=== PATIENT | male | born 1970 | race Caucasian/White ===

== ENCOUNTER 2017-01-22 04:21 | Emergency (ER) | payer OTHER ==
[~2017-01-22] VITALS: Ht 175.3 cm; Wt 92.0 kg
[~2017-01-22 04:21] MED LIST: HYDR-3498 PO; ONDA4TAB8 PO; TAMS-14 PO
[2017-01-22 04:29] VITALS: Ht 175.3 cm; Wt 92.0 kg
[2017-01-22] MEDS ORDERED: ONDANSETRON 4 MG INJ IV STA (04:49)
[2017-01-22] MEDS ORDERED: morphine 4 MG/ML VIAL IV STA (04:49)
[2017-01-22 05:20] LABS: ADD SCAN DIFF NO
[2017-01-22 05:27] LABS: BASOPHIL # 0.1 10^3/ul (0.0-0.1); BASOPHILS % 1.3 % (0.0-2.0); EOSINOPHILS # 0.3 10^3/ul (0.0-0.5); EOSINOPHILS % 3.8 % (0.0-7.0); HEMATOCRIT 49.8 % (42.0-52.0); HEMOGLOBIN 17.5 g/dl (14.0-18.0); LYMPHOCYTES # 2.8 10^3/ul (0.8-2.9); LYMPHOCYTES % 35.7 % (15.0-51.0); MEAN CORPUSCULAR HGB CONC 35.1 g/dl (32.0-37.0); MEAN PLATELET VOLUME 11.6 fl (7.4-10.4); MONOCYTE # 0.6 10^3/ul (0.3-0.9); MONOCYTES % 8.3 % (0.0-11.0); NEUTROPHIL # 3.9 10^3/ul (1.6-7.5); NEUTROPHILS % 50.6 % (39.0-77.0); PLATELET COUNT 244 10^3/UL (140-415); RED BLOOD COUNT 5.47 10^6/ul (4.70-6.10); RED CELL DISTRIBUTION WIDTH 11.6 % (11.5-14.5); WHITE BLOOD COUNT 7.7 10^3/ul (4.8-10.8)
[2017-01-22 05:33] LABS: CHLORIDE 106 mmol/L (97-110)
[2017-01-22 05:34] LABS: ALBUMIN 4.1 g/dl (3.3-4.9); INR 1.05; POTASSIUM 3.7 mmol/L (3.5-5.1); PROTIME 13.7 Sec (12.2-14.2); PT RATIO 1.1; SODIUM 142 mmol/L (135-144)
[2017-01-22 05:35] LABS: PARTIAL THROMBOPLASTIN TIME 29.2 Sec (25.0-35.0)
[2017-01-22 05:37] LABS: ALANINE AMINOTRANSFERASE 69 IU/L (13-69); ALBUMIN/GLOBULIN RATIO 1.28; ALKALINE PHOSPHATASE 86 IU/L (42-121); ANION GAP 14 (8-16); ASPARTATE AMINO TRANSFERASE 38 IU/L (15-46); BILIRUBIN,INDIRECT 0.5 mg/dl (0-1.1); BILIRUBIN,TOTAL 0.5 mg/dl (0.2-1.3); BLOOD UREA NITROGEN 15 mg/dl (7-20); CARBON DIOXIDE 26 mmol/L (21-31); GLUCOSE 110 mg/dl (70-220); TOTAL PROTEIN 7.3 g/dl (6.1-8.1)
--- NOTE | 2017-01-22 05:40 | ERD ---
ER Documentation Chief Complaint Date/Time DATE: 01/22/17 TIME: 05:39 Chief Complaint c/o L arm pain, back pain, L shoulder pain and ble pain since 0200 and SOB HPI This is a 45 mL, soft arm pain back and left shoulder pain and bilateral extremity pain since 2 AM.. This is a chronic into the patient's electronic medical care for. He says he gets so much pain that he becomes short of breath. He denies any fevers or chills. He denies any silvia chest pain. He denies any nausea vomiting fevers or chills. Denies any other current complaints. Pain is mild to moderate intensity and tends to come in waves and is exacerbated by motion. ROS All systems reviewed and are negative except as per history of present illness. Medications Home Meds Active Scripts Tamsulosin Hcl* (Flomax*) 0.4 Mg Cap.er.24h, 0.4 MG PO QPM, #30 CAP Prov:EVERTON SCHWAB PA-C 06/10/16 Ondansetron Hcl* (Zofran*) 4 Mg Tablet, 4 MG PO Q6H for NAUSEA AND/OR VOMITING, #30 TAB Prov:EVERTON SCHWAB PA-C 06/10/16 Hydrocodone Bit-Acetaminophen* ([place]*) 5-325 Mg Tab, 1 TAB PO Q6 Y for PAIN, # 15 TAB Prov:EVERTON SCHWAB PA-C 06/10/16 Reported Medications [None] No Conflict Check 06/12/11 Allergies Allergies: Coded Allergies: No Known Allergy (Unverified , 11/02/13) PMhx/Soc History of Surgery: No Anesthesia Reaction: No Hx Neurological Disorder: No Hx Respiratory Disorders: No Hx Cardiac Disorders: No Hx Psychiatric Problems: No Hx Miscellaneous Medical Probl: Yes (KIDNEY STONE, CHRONIC BACK PAIN.) Hx Alcohol Use: No Hx Substance Use: No Hx Tobacco Use: No Smoking Status: Never smoker Physical Exam Vitals Vital Signs Date Time Temp Pulse Resp B/P Pulse Ox O2 Delivery O2 Flow Rate FiO2 01/22/17 05:00 75 17 142/86 95 Room Air 01/22/17 04:29 98.7 88 18 158/97 98 Physical Exam Const: [] Head: Atraumatic Eyes: Normal Conjunctiva ENT: Normal External Ears, Nose and Mouth. Neck: Full range of motion..~ No meningismus. Resp: Clear to auscultation bilaterally Cardio: Regular rate and rhythm, no murmurs Abd: Soft, non tender, non distended. Normal bowel sounds Skin: No petechiae or rashes Back: No midline or flank tenderness Ext: No cyanosis, or edema Neur: Awake and alert Psych: Normal Mood and Affect Results 24 hrs Laboratory Tests Test 01/22/17 04:47 Prothrombin Time 13.7Sec Prothrombin Time Ratio 1.1 INR International Normalized Ratio 1.05 Activated Partial Thromboplast Time 29.2Sec Current Medications Medications (Trade) Dose Ordered Sig/Iban Route PRN Reason Start Time Stop Time Status Last Admin Dose Admin Morphine Sulfate (morphine) 4 mg ONCE STAT IV 01/22/17 04:49 01/22/17 04:50 DC 01/22/17 05:00 Ondansetron HCl (Zofran Inj) 4 mg ONCE STAT IV 01/22/17 04:49 01/22/17 04:50 DC 01/22/17 05:00 Procedures/MDM EKG: Rate/Rhythm: [Normal Sinus Rhythm] QRS, ST, T-waves: [No changes consistent w/ acute ischemia] Impression: [No evidence of ischemia or arrhythmia] Chest X-ray 1V Interpreted by me: Soft Tissue: No acute abnormalities Bones: No acute abnormalities Mediastinum/Cardiac Silhouette/Lungs: [No acute abnormalities] Medical decision-making: Patient comes in essentially for acute exacerbation of chronic pain syndrome. Patient feels better. Patient be discharged home and tramadol. Departure Diagnosis: Primary Impression: Myalgia Condition: Stable PER HERNÁNDEZ Jan 22, 2017 05:40
[2017-01-22] MEDS ORDERED: TRAM50TA2 PO (05:41)
[2017-01-22 05:46] LABS: B-TYPE NATRIURETIC PEPTIDE 22 PG/ML (0-125)
[2017-01-22 05:59] LABS: TROPONIN-I < 0.012 ng/ml (0.00-0.12)
--- NOTE | 2017-01-22 05:59 | RADRPT ---
PROCEDURE: Chest. CLINICAL INDICATION: Chest pain. TECHNIQUE: Single frontal view of the chest was obtained. COMPARISON: None. FINDINGS: The cardiac silhouette is within normal limits. The aortic arch is unremarkable. There is no focal consolidation, vascular congestion or pleural effusion. There is no pneumothorax. IMPRESSION: No evidence for active cardiopulmonary disease. .Heri Mehta MD, MD Date Time Electronically viewed and signed by .Heri Mehta MD, on 01/22/2017 05:59 .T/
[2017-01-22 06:08] VITALS: BP 135/88; PULSE 76; RESP 17; TEMP 98.6
== END 2017-01-22 06:18 | disposition home or self-care (01) ==
LOC: E/R 04:21
DX: M79.1 Myalgia (principal); R07.9 Chest pain, unspecified
CPT/HCPCS: 36415; 71010; 80053; 83880; 84484; 85025; 85610; 85730; 93005; 96374; 96375; J2270; J2405; Z7502; Z7610

== ENCOUNTER 2019-02-20 16:04 | Emergency (ER) | payer OTHER ==
[~2019-02-20] VITALS: Ht 175.3 cm; Wt 97.3 kg
[~2019-02-20 16:04] MED LIST changes: +TRAM50TA2 PO
[2019-02-20 16:19] VITALS: Ht 175.3 cm; Wt 97.3 kg
[2019-02-20] MEDS ORDERED: KETOROLAC 60 MG INJ IM STA (18:08)
[2019-02-20] MEDS ORDERED: HYDROCODONE/APAP (10/325) TAB PO ONE (18:30)
[2019-02-20] MEDS ORDERED: morphine 10 MG INJ IM ONE (20:00)
[2019-02-20] MEDS ORDERED: OXYC-282 PO (20:18)
[2019-02-20 20:35] VITALS: BP 127/78; PULSE 68; RESP 18
--- NOTE | 2019-02-20 20:38 | ERD ---
ER Documentation Chief Complaint Chief Complaint Chronic back pain after injury 6 months ago, worse today HPI 48-year-old male patient with a past medical history of chronic back pain prese nts to ED complaining of lower back pain that started 3 years ago after a work injury. Patient reports that it was due to lifting a 300 pound object. Reports that he has an orthopedic physician, Dr. Minor who has been following up with him, last imaging was July with an MRI however states that now he feels some numbness and tingling on his legs. States that he still needs a prior authorization for surgery for his back. Describes his pain is achy and rates it a 10 out of 10. Patient denies any chest pain, shortness of breath, nausea, vomiting, diarrhea, neck stiffness. Denies any saddle anesthesia, urine or bowel incontinence, fever, chills. ROS All systems reviewed and are negative except as per history of present illness. Medications Home Meds Active Scripts Oxycodone HCl/Acetaminophen (Percocet 2.5-325 mg Tablet) 1 Each Tablet, 1 EACH PO Q6H, #7 TAB Prov:SANTIAGO LEWIS PA-C 02/20/19 Tramadol HCl (Tramadol HCl) 50 Mg Tablet, 50 MG PO Q4 PRN for PAIN, #20 TAB Prov:PER HERNÁNDEZ 01/22/17 Tamsulosin Hcl* (Flomax*) 0.4 Mg Cap.er.24h, 0.4 MG PO QPM, #30 CAP Prov:EVERTON SCHWAB PA-C 06/10/16 Ondansetron Hcl* (Zofran*) 4 Mg Tablet, 4 MG PO Q6H for NAUSEA AND/OR VOMITING, #30 TAB Prov:EVERTON SCHWAB PA-C 06/10/16 Hydrocodone Bit-Acetaminophen* ([place]*) 5-325 Mg Tab, 1 TAB PO Q6 PRN for PAIN, #15 TAB Prov:EVERTON SCHWAB PA-C 06/10/16 Reported Medications [None] No Conflict Check 06/12/11 Allergies Allergies: Coded Allergies: No Known Allergy (Unverified , 11/02/13) PMhx/Soc History of Surgery: No Anesthesia Reaction: No Hx Neurological Disorder: No Hx Respiratory Disorders: No Hx Cardiac Disorders: No Hx Psychiatric Problems: No Hx Miscellaneous Medical Probl: Yes (KIDNEY STONE, CHRONIC BACK PAIN.) Hx Alcohol Use: No Hx Substance Use: No Hx Tobacco Use: No Smoking Status: Never smoker FmHx Family History: No diabetes, No coronary disease Physical Exam Vitals Vital Signs Date Temp Pulse Resp B/P (MAP) Pulse Ox O2 O2 Flow FiO2 Time Delivery Rate 02/20/19 98.8 68 18 127/78 97 Room Air 20:35 (94) 02/20/19 99.0 97 18 178/94 96 16:19 (122) Physical Exam Const: [id number], well-nourished. In no acute distress. Head: Atraumatic, normocephalic Eyes: Normal Conjunctiva without injection. No purulent discharge. ENT: Normal external ear, nose. Moist oropharynx without tonsillar exudates. Non-erythematous pharynx. Uvula midline. No drooling. No trismus. Neck: No cervical midline tenderness. Full range of motion. No meningismus. No cervical lymphadenopathy. No JVD. Resp: Clear to auscultation bilaterally. No wheezing, rhonchi, rales, or crackles. No accessory muscle use. No retractions. Cardio: Regular rate and rhythm. No murmurs, rubs or gallops. Abd: Soft, nontender, non distended. Normal bowel sounds. No palpable masses. No rebound tenderness. No guarding. Negative McBurney's point. Negative psoas sign. Negative obturator sign. Skin: No petechiae or rashes Back: No midline tenderness. No CVA tenderness. Diffuse tenderness to palpation of the lower spine. Ext: No cyanosis, or edema. Neur: Awake and alert. Normal gait. Normal coordination. Psych: Normal Mood and Affect Results 24 hrs Laboratory Tests Test 02/20/19 18:51 Bedside Urine pH (LAB) 7.0 Bedside Urine Protein (LAB) Negative Bedside Urine Glucose (UA) Negative Bedside Urine Ketones (LAB) Negative Bedside Urine Blood Negative Bedside Urine Nitrite (LAB) Negative Bedside Urine Leukocyte Esterase (L Negative Current Medications Medications Dose Sig/Iban Start Time Status Last (Trade) Ordered Route PRN Stop Time Admin Dose Reason Admin Ketorolac 60 mg ONCE STAT 02/20/19 DC 02/20/19 Tromethamine IM 18:08 18:37 (Toradol) 02/20/19 18:13 1 tab ONCE ONCE 02/20/19 DC 02/20/19 Acetaminophen PO 18:30 18:37 / 02/20/19 18:31 Hydrocodone Bitart ([place] (10/325)) Morphine 5 mg ONCE ONCE 02/20/19 DC 02/20/19 Sulfate IM 20:00 19:49 (morphine) 02/20/19 20:01 Procedures/MDM 48-year-old male patient with no severe past medical history presents ED complaining of chronic back pain that started 3 years ago, worsened a few days ago. Patient is afebrile and nontoxic-appearing. Patient's blood pressure is 178/94. Blood Pressure Assessment: Patient's blood pressure was elevated (>120/80) but appears stable without evidence of hypertension emergency or urgency. The patient was counseled about the risks of hypertension and urged to pursue outpatient monitoring and therapy within a week with their primary care physician. IMPRESSION: 1. Osteopenia. No acute fracture identified. 2. Multilevel degenerative disc and facet disease with most prominent discogenic disease at L5-S1. Less than 2 mm retrolisthesis L5-S1. 3. Mild congenitally short pedicles/narrow spinal canal and prominence of the posterior epidural fat at multiple levels along with multilevel broad-based disc bulges result in mild acquired spinal canal stenosis at L3-L4 and borderline mild at L4-L5. 4. Multilevel neural foraminal narrowing as detailed above level by level. Patient given [place] 10-325mg, 60 mg IM Toradol and 5 mg IM Morphine with improvement of his pain. Patient is ambulating here in the ED without difficulty. Denies saddle anesthesia, numbness or tingling, urine or bowel incontinence, weakness. Low suspicion for cauda equina syndrome, cord compression, nephrolithiasis, aortic aneurysm, aortic dissection, epidural abscess, spinal hematoma, malignancy, pyelonephritis, or other emergent conditions. Diagnosis: Chronic back pain Discharge medications: Percocet Follow up with primary care physician in 1-2 days. Instructed patient to return to the ED sooner for any worsening symptoms. Patient's questions were answered. Patient is hemodynamically stable. Patient understood and agreed with discharge plan. Patient discharged stable. Disclaimer: Inadvertent spelling and grammatical errors are likely due to EHR/dictation software use and do not reflect on the overall quality of patient care. Also, please note that the electronic time recorded on this note does not necessarily reflect the actual time of the patient encounter. Departure Diagnosis: Primary Impression: Chronic back pain Back pain location: back pain in unspecified location Back pain laterality: unspecified Qualified Codes: M54.9 - Dorsalgia, unspecified; G89.29 - Other chronic pain Condition: Stable Patient Instructions: Pain Management, Back Basics: A Healthy Spine, Back Care Tips, Back Pain (Acute Or Chronic), Back Pain W/ Sciatica Referrals: [facility] YOU HAVE RECEIVED A MEDICAL SCREENING EXAM AND THE RESULTS INDICATE THAT YOU DO NOT HAVE A CONDITION THAT REQUIRES URGENT TREATMENT IN THE EMERGENCY DEPARTMENT. FURTHER EVALUATION AND TREATMENT OF YOUR CONDITION CAN WAIT UNTIL YOU ARE SEEN IN YOUR DOCTORS OFFICE WITHIN THE NEXT 1-2 DAYS. IT IS YOUR RESPONSIBILITY TO MAKE AN APPOINTMENT FOR FOLOW-UP CARE. IF YOU HAVE A PRIMARY DOCTOR --you should call your primary doctor and schedule an appointment IF YOU DO NOT HAVE A PRIMARY DOCTOR YOU CAN CALL OUR PHYSICIAN REFERRAL HOTLINE AT IF YOU CAN NOT AFFORD TO SEE A PHYSICIAN YOU CAN CHOSE FROM THE FOLLOWING [facility] [address] [facility]. [facility] [address] [facility]. [facility] [address] [facility] [facility] [address] [facility]. [facility] [address] [facility]. [facility]. [address] [facility] YOU HAVE RECEIVED A MEDICAL SCREENING EXAM AND THE RESULTS INDICATE THAT YOU DO NOT HAVE A CONDITION THAT REQUIRES URGENT TREATMENT IN THE EMERGENCY DEPARTMENT. FURTHER EVALUATION AND TREATMENT OF YOUR CONDITION CAN WAIT UNTIL YOU ARE SEEN IN YOUR DOCTORS OFFICE WITHIN THE NEXT 1-2 DAYS. IT IS YOUR RESPONSIBILITY TO MAKE AN APPOINTMENT FOR FOLOW-UP CARE. IF YOU HAVE A PRIMARY DOCTOR --you should call your primary doctor and schedule and appointment IF YOU DO NOT HAVE A PRIMARY DOCTOR YOU CAN CALL OUR PHYSICIAN REFERRAL HOTLINE AT . IF YOU CAN NOT AFFORD TO SEE A PHYSICIAN YOU CAN CHOSE FROM THE FOLLOWING [facility] INSTITUTIONS: [facility] [address] [place] [address] [facility] [address] [place] [address] LOCATED WITHIN [facility] + [facility] [address] [place] [address] [facility] URGENT CARE/SPECIALTIES Additional Instructions: Consulte a mckay mdico ortopdico para valeriy mayor evaluacin y tratamiento. Tambin obtener valeriy referencia para cate el manejo del dolor Llame al doctor JASMYNE y gisela valeriy MO PARA DENTRO DE 2-3 ESCOBEDO.Dgale a la secretaria que nosotros le instruimos hacer esta mo.Avise o llame si mckay condicin se empeora antes de la mo. Regresa aqui si peor o no mejor. No tome Tylenol #3 o Ciclobenazeprine con Percocet SANTIAGO LEWIS PA-C Feb 20, 2019 20:38
== END 2019-02-20 20:35 | disposition home or self-care (01) ==
LOC: FTE 16:04
DX: M54.5 Low back pain (principal)
CPT/HCPCS: 72131; 81003; 96372; J1885; J2270; Z7502; Z7610